=== PATIENT | female | born 1980 | race Caucasian/White ===

== ENCOUNTER 2020-10-23 06:20 | Day surgery (SDC) | payer OTHER ==
[~2020-10-23] VITALS: Ht 167.6 cm; Wt 67.6 kg
--- NOTE | ~2020-10-23 | O ---
[address] [address] OPERATIVE REPORT Name: WENDY ACOSTA Room #: [facility].#: [id number] Admission: 10/23/20 Attend Phys: William Macedo MD Discharge: 10/23/20 Date of : 82 Report #: [id number] THIS REPORT FOR: cc: Physician not on staff Physician not on staff William Macedo MD ~ DOC #: [id number] William Macedo MD DATE OF SERVICE: 10/23/2020 DATE OF PROCEDURE: 10/23/2020. SERVICE: Orthopedics. FACILITY: [facility]. SURGEON: William Macedo MD EMPLOYEE DEVELOPMENT DIRECTOR: Alfreda Aguilar NP. INDICATION FOR EMPLOYEE DEVELOPMENT DIRECTOR: Extremity positioning, suture management, arthroscopic management, assistance with repair. PREOPERATIVE DIAGNOSES: 1. Right hip pain. 2. Right hip femoral acetabular impingement. POSTOPERATIVE DIAGNOSES: 1. Right hip pain. 2. Right hip femoral acetabular impingement. 4. Right hip chondromalacia. PROCEDURE PERFORMED: 1. Right hip arthroscopic labral repair. 2. Right hip arthroscopic subspine decompression. 3. Right hip arthroscopic Cam osteochondroplasty. COMPLICATIONS: None. DRAINS: None. SPECIMENS: None. ANESTHESIA: General with regional. FINDINGS: [address] [address] OPERATIVE REPORT Name: WENDY ACOSTA Room #: DEP [place] Madeline#: [id number] Admission: 10/23/20 Attend Phys: William Macedo MD Discharge: 10/23/20 Date of : 82 Report #: [id number] 1. A frayed detached anterior labral tear, treated with Waldron CinchLock suture anchor x3. 2. Chondromalacia of the anterior acetabular rim with small 1 x 2 mm area of grade IV chondromalacia anteriorly and surrounding grade II and III with eburnated bone on the femoral head anterolaterally at the proximal side adjacent to the unstable labral tear. 3. Subspine impingement lesion treated with additional soft tissue dissection of the capsule around the base of the anterior inferior iliac spine with the cautery and the shaver and resected with the bur in the standard fashion. 4. 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 5. Capsule closed with 2-0 Vicryl x4. HISTORY: The patient is a 40-year-old female with a longstanding history of persistent progressive right hip pain that had failed conservative measures for greater than six months including rest, activity modifications, physical therapy, oral medicines and modalities. She had positive pain response with intraarticular injection in the right hip, but unfortunately had temporary pain relief and did not have sustained benefit. She had pain affecting activities of daily living and give way symptoms as well as a positive impingement sign on physical examination and subsequent loss of internal rotation. Preoperative x-rays showed femoral acetabular impingement with an alpha angle of approximately 58 degrees and a small crossover sign secondary to a prominent anteroinferior iliac spine, which is an indicator of extraarticular subspine impingement. She had an MRI which showed an anterior labral tear. It was indicated for surgical treatment. After the risks, benefits, alternatives and indications for surgery discussed with her in detail. The risks include but are not limited to pain, bleeding, infection, injury to nerves or blood vessels, persistent pain despite surgical intervention, failure of any repair, progression of preexisting chondral injury, stiffness, need for further surgery as well as complications related to anesthesia. Despite the risks, she wished to proceed. DESCRIPTION OF PROCEDURE: After right lower extremity was correctly identified in the preoperative holding area as the operative extremity, the patient underwent regional nerve block. She was taken to the operating room. General anesthesia was induced without complication. She was padded appropriately. Prophylactic antibiotics were administered at appropriate time. C-arm was used to identify the extent of the Cam deformity, mapping out the proximal femoral head and neck junction anatomy. Then, the right hip was prepped and draped in standard sterile fashion. A timeout procedure performed. Traction was applied. Standard anterolateral viewing portal was established followed by an anteromedial working portal. Diagnostic arthroscopy revealed the above findings. There was some synovitis as well as capsular erythema which will be the indication for continuous passive motion machine usage postoperatively in [address] [address] OPERATIVE REPORT Name: WENDY ACOSTA Room #: DEP [facility] M.R.#: [id number] Admission: 10/23/20 Attend Phys: William Macedo MD Discharge: 10/23/20 Date of : 82 Report #: [id number] order to reduce the risk of scarring and adhesions that these can be reasons for reoperation in this patient population. Transverse capsulotomy was performed. The anterior labrum where there was the labral tear had some fibrillation and fraying on the superficial fibers and some swelling of the labrum dorsally. There was a full detached labral tear in this location, but the peripheral labrum medially and laterally, otherwise looked healthy. Capsule was reflected off the dorsal side of the labrum allowing access to the subspine region as well as the acetabular rim. The capsular dissection was continued while preserving capsular tissue as much as able, isolating and visualizing the anterior inferior iliac spine base and then the bur was used to perform a subspine decompression using standard technique and C-arm to confirm the resection. The bur was then used to gently decorticate the acetabular rim to create a fresh bleeding surface for labral repair and then Waldron [employer] suture anchors x2 were placed, one medial and one lateral with good compression of the labrum against the acetabular rim. I then probed between these 2 and felt that there was still some increased mobility here and placed a third anchor between the two for a total of three anchor repair of the labrum. After this was placed and the chondroplasty was completed with a shaver, it was once again probed and found to be stable. Traction was let down. The hip was flexed up. We could visualize the femoral head chondromalacia at this time very well. This was at about the 0-20 degree position on the femoral head just proximal to the transition to the neck and extending slightly down on the neck. This was not actually part of the Cam deformity. I did a tapered Cam into this area in order to resect as much pathologic tissue as possible and prevent any sharp edges from being left. Under fluoroscopy, we identified the location of the Cam deformity and then performed a Cam osteoplasty in standard fashion. The bony debris was lavaged out of the hip. The instruments were removed. C-arm was brought in to assess the resection. There was some additional bone distally to be resected, which was performed and then the bony debris was again lavaged out the hip. Final photographs and x-rays were taken. The T-shaped capsulotomy was then closed with a total of four #2 Vicryl sutures. Instruments were removed. Portal sites were closed. Sterile dressing was applied. The patient was awakened from anesthesia and taken to recovery room in stable condition. There were no complications. All counts were correct. William Macedo MD MPM/BO By: [id number] William Macedo MD /nt
[~2020-10-23 06:20] MED LIST: ARMOUR THYROID60 M1 PO; COLLAGEN HYDROLY1 GM PO; MULTI-VITE9 MG/15 ML PO; [UNRECOGNIZED DRUG - OTHER] PO; [UNRECOGNIZED DRUG - OTHER] PO
[2020-10-23 06:42] VITALS: BP 110/76
[2020-10-23 09:44] VITALS: BP 110/76
== END 2020-10-23 10:50 | disposition home or self-care (01) ==
LOC: OR 06:20 → TBA 06:20 → OR 09:44
PROVIDERS: ATTEND Orthopaedic Surgery Sports Medicine
DX: M25.551 Pain in right hip (principal); M25.851 Other specified joint disorders, right hip; S73.101A Unspecified sprain of right hip, initial encounter; M94.251 Chondromalacia, right hip; D64.9 Anemia, unspecified; Z98.890 Other specified postprocedural states; Z79.899 Other long term (current) drug therapy; X58.XXXA Exposure to other specified factors, initial encounter; Y93.89 Activity, other specified; Y92.89 Other specified places as the place of occurrence of the external cause; Y99.8 Other external cause status
CPT/HCPCS: 50010; 50101; 50386; 51320; 51538; 52304; 52313; 56524; 56527; 57092; 57103; 58108; 58273; 58274; 58558; 58560; 58561; 58562; 58563; 58564; 58608; 58634; 62110; 62900; 64041; 70005